=== PATIENT | male | born 1955 | race Caucasian/White ===

== ENCOUNTER 2017-10-08 19:48 | Observation (INO) | payer BC, SELFPAY ==
[2017-10-08 19:49] VITALS: BP 137/99; PULSE 85; RESP 14; TEMP 36.6; O2SAT 99; BMI 23.8
--- NOTE | 2017-10-08 20:07 | EKG12_ITS ---
Test Reason : CP Blood Pressure : / mmHG Vent. Rate : 071 BPM Atrial Rate : 071 BPM P-R Int : 130 ms QRS Dur : 092 ms QT Int : 384 ms P-R-T Axes : 022 008 036 degrees QTc Int : 417 ms Normal sinus rhythm Normal ECG Confirmed by DONY HAMPTON, CHAR ([id number]), editor & co founder JERMAINE WARREN ([id number]) on 10/10/2017 1:07:38 PM Referred By: GONZALEZ DUARTE Confirmed By:CHAR NAPOLES MD
--- NOTE | 2017-10-08 20:20 | RAD_ITS ---
STUDY: X-RAY CHEST REASON FOR EXAM: Male, 62 years old. Chest pain TECHNIQUE: Single frontal view of the chest. COMPARISON: July 16, 2012 FINDINGS: The lungs are clear and expanded. There is no demonstrated pleural abnormality. Normal size heart. Normal mediastinum and long. Normal visualized pulmonary arteries. Normal visualized aortic arch and descending thoracic aorta. Normal visualized thoracic spine. Normal visualized ribs, clavicles, and shoulders. There is no demonstrated abnormality of the visualized soft tissue structures of the upper abdomen. RAD/Chest 1 View (Portable) IMPRESSION: Normal x-ray examination of the chest. Electronically Signed: Baljinder Paige MD at 21:09 EDT , Service support ,
[2017-10-08] MEDS: Aspirin 81 MG TAB.CHEW 324 MG PO (20:21)
[2017-10-08] MEDS: 0.9% Normal Saline 1,000 ML 150 ML IV (20:21)
[2017-10-08 20:28] LABS: Absolute Lymphocyte Count 3.67 X10^3/ul (0.83-4.51); Absolute Neutrophil Count 4.5 X10^3/uL (2.0-7.7); Basophil# 0.04 X10^3/uL; Basophil% 0.4 % (0-1); Eosinophil# 0.22 X10^3/uL; Eosinophils% 2.3 % (0-5); Hematocrit 45.4 % (40-54); Hemoglobin 14.9 g/dl (13.0-16.5); Lymphocyte # 3.67 X10^3/ul (4.0); Lymphocyte % 37.9 % (19-41); Mean Corp Hgb Conc 32.8 g/gl (32-36); Mean Corpuscular Hgb 31.6 pg (27.0-32.0); Mean Corpuscular Volume 96.4 fL (80-94); Mean Platelet Vol. 10.9 fl (6.2-12.0); Monocyte# 1.26 X10^3/uL; Neutrophil # 4.47 X10^3/uL (2.7-7.7); Neutrophil % 46.2 % (47-70); Platelet Count 177 K/mm3 (150-450); RBC Distribution Width CV 13.1 % (11.6-14.6); RBC Distribution Width SD 45.9 fl (35.1-43.9); Red Blood Count 4.71 M/mm3 (4.6-6.2); White Blood Count 9.7 K/mm3 (4.4-11.0)
[2017-10-08 20:31] LABS: POSITIVE COUNT NO; POSITIVE DIFFERENTIAL NO; POSITIVE MORPHOLOGY NO
[2017-10-08 20:37] LABS: D-Dimer Quantitative (DVT/PE) 0.39 FEU/ug/m (0.27-0.49)
[2017-10-08 20:40] LABS: Anion Gap 8 (5-15); BUN 17 mg/dL (7-18); BUN/Creat Ratio 18.9 RATIO (10-20); Calcium,Total 8.4 mg/dL (8.5-10.1); Chloride 107 mmol/L (98-107); EST Glomerular Filtration Rate 91 mL/min (>60); Est Glom Filt Rate - Afr Amer 110 mL/min (>60); Estimated Creatinine Clearance 89.48 ml/min; Glucose 86 mg/dL (74-106); Potassium 3.7 mmol/L (3.5-5.1); Sodium Level 144 mmol/L (136-145)
[2017-10-08 20:49] VITALS: BP 148/93; PULSE 83; RESP 16; O2SAT 98
[2017-10-08 21:06] VITALS: BP 128/99; PULSE 76; RESP 16; O2SAT 98
--- NOTE | 2017-10-08 21:28 | EKG12_ITS ---
Test Reason : CP Blood Pressure : / mmHG Vent. Rate : 064 BPM Atrial Rate : 064 BPM P-R Int : 126 ms QRS Dur : 088 ms QT Int : 406 ms P-R-T Axes : 019 018 032 degrees QTc Int : 418 ms Normal sinus rhythm Normal ECG Confirmed by CHAR NAPOLES MD ([id number]), slot editor JERMAINE WARREN ([id number]) on 10/10/2017 1:07:55 PM Referred By: GONZALEZ Confirmed By:CHAR NAPOLES MD
--- NOTE | 2017-10-08 21:28 | ED.VISSUMM ---
- ER Visit Summary Date of Service: 10/08/17 Chief Complaint: Chest pain History of Present Illness: The patient is a 62 M who was sitting at rest tonight when he developed substernal squeezing pain. Patient states the pain is now into his left scapula. He describes as a sharp tightness. He denies shortness of breath or sweating. He did have recent travel back from [place]. He denies any recent change in activity tolerance. He is not a smoker. Physical Examination: Vital signs are unremarkable. Head neck examination is unremarkable. Heart is regular rate and rhythm. Lungs are clear with good air movement. I cannot reproduce any anterior chest wall pain. Abdomen is soft nontender. Back examination is nontender with no reproducible pain. Extremity examination is unremarkable with no calf tenderness or edema. He has strong equal pulses throughout. Test Results: EKG is sinus at 71 with no sign of acute ischemia. Portable chest x-ray is unremarkable. The BC and chemistry studies normal. Troponin is less than 0.02. D-dimer is normal at 0.39. Emergency Department Course and Treatment: Patient was given aspirin IV fluids. On repeat evaluation complaining of mild pain to his left neck. Second EKG will be obtained at this time. Plan will be to admit patient for cycling of cardiac enzymes and further cardiac evaluation. Treatment Plan: [] Disposition: Admit Impression: Chest pain This note was generated with [employer] dictation software. It may contain incorrect words, spelling, and punctuation that were not noted in review of the chart prior to signing ED Disposition - Plan for ED Patient: Chief Complaint: Chest Pain Referrals: Manpreet Valenzuela MD [Primary Care Provider] -
[2017-10-08 21:51] VITALS: BP 129/98; PULSE 73; RESP 16; O2SAT 98
--- NOTE | 2017-10-08 22:15 | HP.PCM_ITS ---
Problem List (1) Chest pain Status: Acute History of Present Illness Date of Admission: 10/08/17 Chief Complaint: Chest pain The patient is a 62 year old male previously healthy admitted for chest pain. He has left sided chest pain. Pain is sharp and occasionally dull-aching. He had the pain at rest. Nothing appeared to make it better or worse. Pain was mild to moderate. Pain migrated to his shoulder and left upper arm. He later developed tightness of his chest after minutes of onset of chest pain. He did not have these symptoms before. He recently travelled back from [place]. Past Medical History Allergies No Known Allergies Allergy (Verified 10/08/17 19:49) Home Medications: Ambulatory Orders Medication Instructions Recorded Gabapentin [Gralise] 300 mg PO PRN PRN 10/08/17 Surgical History: no surgical history Psychiatric History: No pertinent psych hx Lives: Spouse/ Significant Other Smoking Status: Never smoker Alcohol: None Drugs: None Review of Systems Constitutional: Denies: Chills, Fever, Weight Change HEENT: Denies: Head Aches, Sinus Congestion, Sinus Drainage Cardiovascular: Reports: Chest Pain, Chest Tightness. Denies: Palpitations Respiratory: Denies: Cough, Shortness of breath at rest, Sputum production Gastrointestinal: Denies: Abdominal Pain, Nausea, Vomiting Genitourinary: Denies: Dysuria Musculoskeletal: Denies: Joint Pain, Joint Tenderness Skin: Denies: Rash, Wounds Neurological: Denies: Numbness, Tingling, Focal weakness Psychiatric: Denies: Anxiety, Depression, Homicidal Ideations, Suicidal Ideations Hematologic/ Lymphatic: Denies: Easy Bruising, Easy Bleeding VTE Information - Inpt Only VTE Present on Admission: No VTE Mechan Device Prophylaxis: SCD's VTE Pharm Prophylaxis ordered?: Yes Patient Problems: Active and Suspected Problems Chest pain (Acute) - Physical Exam General: Alert, Oriented x3, Cooperative HEENT: Atraumatic, PERRLA, EOMI, Normocephalic Neck: Supple, No JVD, Negative Carotid Bruits Lungs: Clear to auscultation, Normal air movement Cardiovascular: Regular rate, No murmurs Abdomen: Bowel Sounds Present, Soft, Non Tender Extremities: No edema, Capillary Refill Less than 3 Seconds Skin: No rashes, No breakdown Musculoskeletal: No Tenderness to Palpation of Joints or Extremities Neurological: Cranial nerves II-XII grossly intact Psych/Mental Status: Normal Affect, Appropriate Vital Signs Temp Pulse Resp BP Pulse Ox 97.8 F 73 16 129/98 H 98 10/08/17 19:49 10/08/17 21:51 10/08/17 21:51 10/08/17 21:51 10/08/17 21:51 Assessment/Plan Active and Suspected Problems Chest pain (Acute) 62 year old male previously healthy admitted for chest pain. 1) Chest pain: Heart score 4 EKG and chest xray unremarkable. Will get serial trops. Will get FLP. Will start ASA, betablocker, ACEI, and statin. Stress test and ECHO in AM. 2) HTN: Started betablocker and ACEI. 3) Prophylaxis: SCD / heparin.
[2017-10-08 22:20] VITALS: BP 123/84; PULSE 69; RESP 16; TEMP 36.5; O2SAT 100
[2017-10-08 22:22] VITALS: BMI 23.7
[2017-10-08 22:24] VITALS: BMI 23.7
[2017-10-08 23:26] VITALS: PULSE 76
[2017-10-09 03:02] VITALS: PULSE 66
[2017-10-09] MEDS: 0.9% Normal Saline 1,000 ML 150 ML IV (04:31)
[2017-10-09 04:34] LABS: Absolute Lymphocyte Count 2.85 X10^3/ul (0.83-4.51); Absolute Neutrophil Count 3.5 X10^3/uL (2.0-7.7); Basophil# 0.04 X10^3/uL; Basophil% 0.5 % (0-1); Eosinophil# 0.24 X10^3/uL; Eosinophils% 3.1 % (0-5); Hematocrit 39.4 % (40-54); Hemoglobin 13.2 g/dl (13.0-16.5); Lymphocyte # 2.85 X10^3/ul (4.0); Lymphocyte % 37.1 % (19-41); Mean Corp Hgb Conc 33.5 g/gl (32-36); Mean Corpuscular Volume 95.4 fL (80-94); Monocyte# 1.07 X10^3/uL; Monocyte% 13.9 % (0-10); Neutrophil # 3.47 X10^3/uL (2.7-7.7); Neutrophil % 45.1 % (47-70); Platelet Count 164 K/mm3 (150-450); RBC Distribution Width CV 12.9 % (11.6-14.6); RBC Distribution Width SD 43.7 fl (35.1-43.9); Red Blood Count 4.13 M/mm3 (4.6-6.2); White Blood Count 7.7 K/mm3 (4.4-11.0)
[2017-10-09 04:37] LABS: Prothrombin Time (Protime)PT. 13.4 SECONDS (11.7-14.9)
[2017-10-09 04:38] LABS: Partial Thromboplast Time 28.1 Seconds (24.1-36.2)
[2017-10-09 04:46] LABS: POSITIVE COUNT NO; POSITIVE DIFFERENTIAL NO; POSITIVE MORPHOLOGY NO
[2017-10-09 04:49] LABS: AST(SGOT) 30 U/L (15-37); Alanine Aminotransfer ALT/SGPT 51 U/L (16-61); Albumin, Serum 2.8 g/dL (3.2-5.0); Alkaline Phosphatase 61 U/L (45-117); Anion Gap 8 (5-15); BUN 15 mg/dL (7-18); BUN/Creat Ratio 21.1 RATIO (10-20); Calcium,Total 7.6 mg/dL (8.5-10.1); Chloride 109 mmol/L (98-107); Cholesterol 110 mg/dL (200); Creatinine, Serum 0.71 mg/dL (0.70-1.30); EST Glomerular Filtration Rate 119 mL/min (>60); Est Glom Filt Rate - Afr Amer 144 mL/min (>60); Estimated Creatinine Clearance 113.42 ml/min; Globulin 2.7 g/dL (2.2-4.2); Glucose 105 mg/dL (74-106); High Density Lipoprotein 34 mg/dL; Magnesium 2.1 mg/dL (1.6-2.6); Potassium 3.3 mmol/L (3.5-5.1); Protein, Total 5.5 g/dL (6.4-8.2); Sodium Level 143 mmol/L (136-145); Triglycerides 53 mg/dL; Very Low Density Lipoprotein 11 mg/dL (5-40)
[2017-10-09 04:50] VITALS: BP 113/65; PULSE 65; RESP 16; TEMP 36.7; O2SAT 97
--- NOTE | 2017-10-09 05:55 | EKG12_ITS ---
Test Reason : AM EKG Blood Pressure : / mmHG Vent. Rate : 065 BPM Atrial Rate : 065 BPM P-R Int : 130 ms QRS Dur : 098 ms QT Int : 418 ms P-R-T Axes : 028 045 037 degrees QTc Int : 434 ms Normal sinus rhythm Normal ECG When compared with ECG of 13-MAR-2012 10:42, No significant change was found Confirmed by DONY HAMPTON, CHAR ([id number]), loan expeditor JERMAINE WARREN ([id number]) on 10/12/2017 3:38:02 PM Referred By: USHA Confirmed By:CHAR NAPOLES MD
--- NOTE | 2017-10-09 05:55 | ECHOD_ITS ---
Reason For Study: Chest Pain Procedure This was a 2D Doppler, Color Flow transthoracic echocardiogram. Exam performed portable in patient room. Left Ventricle Normal LV size. Left ventricular systolic function is normal. The estimated ejection fraction is 55 %. Transmitral and pulmonary venous doppler flow suggestive of impaired relaxation of left ventricle. No regional wall motion abnormalities noted. Right Ventricle Normal RV size. Normal systolic function. Atria Normal left atrium. Normal right atrium. Mitral Valve Bileaflet diffuse mitral valve thickening. Mild (1+) eccentric mitral valve insufficiency. Tricuspid Valve Normal tricuspid valve. Mild tricuspid valve insufficiency. Pulmonary artery systolic pressure is 26 mmHg. Aortic Valve Trisinus/trileaflet aortic valve. Trivial eccentric aortic valve insufficiency. Pulmonic Valve Normal pulmonic valve. Great Vessels Normal aortic root. The pulmonary artery is normal size. Normal inferior vena cava. Pericardium/Pleural No pericardial effusion. MMode/2D Measurements & Calculations LVIDd: 5.1 cm IVSd: 0.89 cm Ao root diam: 3.5 cm LVIDs: 3.4 cm LVPWd: 1.00 cm LA dimension: 3.5 cm RVDd: 4.2 cm FS: 32.1 % LAV(MOD-bp): 33.9 ml EDV(MOD-sp4): 119.7 ml SV(MOD-sp4): 84.6 ml LAV(MOD-bp) Indexed: 17.2 ml/m2 ESV(MOD-sp4): 35.1 ml LAV(MOD-sp2): 41.7 ml EF(MOD-sp4): 70.7 % LAV(MOD-sp4): 27.7 ml LA A4 area: 12.7 cm2 RA A4 area: 14.7 cm2 Doppler Measurements & Calculations MV E max raul: 75.2 cm/sec Lat Peak E' Raul: 9.7 cm/sec Med Peak E' Raul: 7.6 cm/sec MV A max raul: 62.0 cm/sec E/E' lat: 7.7 E/E' med: 10.0 MV E/A: 1.2 Ao V2 max: 107.1 cm/sec LV V1 max: 94.7 cm/sec PA V2 max: 61.5 cm/sec Ao max P.6 mmHg LV V1 max P.6 mmHg Ao V2 mean: 87.3 cm/sec Ao mean P.2 mmHg Ao V2 VTI: 28.1 cm PI end-d raul: 65.7 cm/sec TR max raul: 228.9 cm/sec TR max P.0 mmHg Interpretation Summary Normal LV size. Left ventricular systolic function is normal. The estimated ejection fraction is 55 %. Transmitral and pulmonary venous doppler flow suggestive of impaired relaxation of left ventricle Mild (1+) eccentric mitral valve insufficiency. Pulmonary artery systolic pressure is 26 mmHg. Ordering Physician: Pb Pretty Referring Physician: Gerald Valenzuela Performed By: Vivien Downing, NIRANJAN, RVT
[2017-10-09 08:04] VITALS: PULSE 77
[2017-10-09 08:20] VITALS: BP 113/66; PULSE 71; RESP 18; TEMP 36.6; O2SAT 96
--- NOTE | 2017-10-09 11:49 | STRESSREP ---
Stress Test Report Exercise myocardial perfusion stress test. 62-year-old man with a history of chest pain. Stress protocol: Resting EKG demonstrates normal sinus rhythm with a rate of 64 bpm normal intervals and noted resting blood pressure is 128/86 centimeters of mercury. The patient exercised according to the regular Kurt protocol for total duration of 10 minutes and 15 seconds. Patient completed 1 minute and 15 seconds into stage IV of the Kurt protocol. The maximum heart rate attained was 157 bpm which was 100% of maximum predicted heart rate the maximum workload attained was 12.1 metabolic equivalents. At rest there were no ST or T-wave changes noted suggest ischemia peak exercise upsloping ST changes only were noted we did not meet the criteria for ischemia. Occasional premature ventricular ectopic beats were noted and short runs of supraventricular tachyarrhythmia present the above were asymptomatic. Myocardial perfusion protocol. 10.9 mCi of technetium 99m sestamibi was injected at rest. The patient exercised according to the regular Kurt protocol for 10 minutes and 15 seconds. Patient obtained 100% maximum predicted heart rate. At peak exercise 33.4 mCi of technetium 99m sestamibi were injected. Stress images were obtained stress and rest images were reconstructed and compared in the short axis vertical long and horizontal long axis. Gated images were also obtained. Perfusion SPECT analysis: Review of the stress images demonstrate normal uptake of tracer noted in all areas of the myocardium. The resting images similarly demonstrate normal uptake of tracer noted in all areas of the myocardium. No areas of reversibility are noted suggest ischemia. No previous infarct is noted. Gated SPECT analysis: The gated ejection fraction is noted to be 61%. Conclusion: Normal exercise myocardial perfusion stress test at a high workload. No clinical angina noted. Preserved ejection fraction.
[2017-10-09 12:48] VITALS: PULSE 85
[2017-10-09 12:52] VITALS: BP 116/80; PULSE 79; RESP 16; TEMP 36.6; O2SAT 98
--- NOTE | 2017-10-09 12:52 | PCM.DC ---
- Discharge Diagnoses Current Active Problems: Current Active and Chronic Problems Chest pain (Acute) You will use the following diet at home:: No restrictions Your food should be the consistency of: Regular Your liquids should be the consistency of: Regular/Thin Discharge Activity: Return to Normal Activity Weight Bearing Status: Full weight bearing Allergies/Adverse Reactions: Allergies No Known Allergies Allergy (Verified 10/08/17 22:41) Medications to take at Discharge Gabapentin [Gralise] 300 mg PO PRN PRN 10/08/17 Claritin 10/09/17 Primary Care Physician: Manpreet Valenzuela MD [Primary Care Provider] - Please follow up with your Primary Care Physician in: IN 1-2 WEEKS
--- NOTE | 2017-10-10 18:30 | PCM.DC.SUM ---
Discharge Date and Diagnosis Date of Admission: 10/08/17 Date of Discharge: 10/09/17 - Primary Discharge Diagnosis #1 musculoskeletal chest pain #2 hypertension Hospital Course and Treatment Operations: None Procedures: 2-D Echocardiogram, Nuclear stress test Summary of Care Provided: The patient is a 62 year old M was seen in the emergency room at [facility] with chief complaint of left-sided chest pain. Workup in the emergency room included an EKG which was unremarkable, chest x-ray was unremarkable, patient's troponin was less than 0.02, and d-dimer was normal. Patient was placed in observation status on PCU, enzymes were cycled and they remain normal. Patient was monitored on telemetry. Patient underwent a nuclear stress test the following day that was negative for reversible ischemia. Patient had an echocardiogram performed which was also unremarkable. On 10/09/17, patient was seen and examined and felt to be in stable condition for discharge home Discharge Activity: Return to Normal Activity Weight Bearing Status: Full weight bearing Home Medications: Medications to take at Discharge Gabapentin [Gralise] 300 mg PO PRN PRN 10/08/17 Claritin 10/09/17 Primary Care Physician: Manpreet Valenzuela MD [Primary Care Provider] - Please follow up with your Primary Care Physician in: IN 1-2 WEEKS Disposition: Home Minutes spent on discharge:: 25 Patient Condition:: Stable Medical Necessity - Tobacco Use Smoking Status: Never smoker Meaningful Use Info Meaningful Use Diagnoses (Choose all that apply): None applicable Code Visit OBSV E&M: 17564 Observation care discharge
== END 2017-10-09 13:15 | disposition home or self-care (01) ==
LOC: ED 20:20 → PCU 22:08
PROVIDERS: Admitting Provider Internal Medicine; Emergency Provider Emergency Medicine; Family Provider Family Medicine; PCP Family Medicine; Visit Provider Internal Medicine
DX: R07.89 Other chest pain (principal); M25.519 Pain in unspecified shoulder; M79.622 Pain in left upper arm; I10 Essential (primary) hypertension
CPT/HCPCS: 36415; 71045; 78452; 80048; 80053; 80061; 83735; 84443; 84484; 85025; 85379; 85610; 85730; 93005; 93017; 93306; 96360; 96361; 99218; 99285; A9500; J7030; A4216; G0378; J2785

== ENCOUNTER 2018-02-05 09:28 | Day surgery (SDC) | payer BC, SELFPAY ==
[2018-02-05 10:02] VITALS: BP 122/89; PULSE 73; RESP 14; TEMP 36.5; O2SAT 97; BMI 22.5
[2018-02-05 10:50] VITALS: BP 107/81; BP 122/89; PULSE 71; RESP 16; TEMP 37.2; O2SAT 97
--- NOTE | 2018-02-05 10:50 | OP.PCM_ITS ---
Problem List (1) Bleeding per rectum Status: Acute Report of Operation Date of Procedure: 02/05/18 Pre-Operative Diagnosis: K 62.5 rectal bleeding Post-Operative Diagnosis: Same Surgery/Procedure Performed:: Colonoscopy Type of Anesthesia:: MAC Anesthesiologist: Eduardo Hernandez Description of Procedure: Patient was brought into the endoscopy suite. Placed in the left lateral decubitus position. Given graded anesthesia. Colonoscope was inserted into the rectum. The scope was directed through the sigmoid colon, descending colon , transverse colon, ascending colon, to the cecum without difficulty. Operative findings: 1. Cecum: Normal appearance no mass lesions normal ileocecal valve. 2. Ascending colon: Normal appearance no mass lesions. 3. Transverse colon: Normal appearance no mass lesions. 4. Descending colon: Normal appearance no mass lesions. 5. Sigmoid colon: Normal appearance no mass lesions scattered small diverticuli identified. 6. Rectum: Normal appearance no mass lesions minimal internal hemorrhoidal disease identified. Small hemorrhoids identified a right on the dentate line they do appear like they have been actively bleeding. No masses in the anus. Scope was withdrawn digital rectal exam was performed showing a smooth prostate with no nodules. Patient will need another colonoscopy in 10 years. His bleeding is obviously coming from these internal hemorrhoids at the dentate line the tricky thing here is how to best deal with them possibly doing hemorrhoidal banding but it may end up that we had to take him to surgery and do a formal hemorrhoidectomy on him. - Admit VTE Documentation VTE Present on Admission: No VTE Mechan Device Prophylaxis: None VTE Pharm Prophylaxis ordered?: No Reason prophylaxis not ordered:: Treatment Not Indicated
[2018-02-05 10:55] VITALS: BP 122/89; BP 98/78; PULSE 70; RESP 16; O2SAT 97
[2018-02-05 11:00] VITALS: BP 109/82; BP 122/89; PULSE 68; RESP 16; O2SAT 96
[2018-02-05 11:05] VITALS: BP 116/81; BP 122/89; PULSE 63; RESP 16; TEMP 36.9; O2SAT 96
[2018-02-05 11:34] VITALS: BP 122/89
== END 2018-02-05 11:35 | disposition home or self-care (01) ==
LOC: EN 09:30 → AC 09:31
PROVIDERS: Family Provider Family Medicine; PCP Family Medicine; Visit Provider Surgery
PROC: 0DJD8ZZ Inspection of Lower Intestinal Tract, Via Natural or Artificial Opening Endoscopic (ICD-10-PCS; CPT 45378; principal; 2018-02-05 10:25)
DX: K62.5 Hemorrhage of anus and rectum (principal); K64.8 Other hemorrhoids; K57.30 Diverticulosis of large intestine without perforation or abscess without bleeding; M19.90 Unspecified osteoarthritis, unspecified site
CPT/HCPCS: 45378; J7120

== ENCOUNTER 2018-11-12 08:51 | Outpatient (RCR) | payer BC, SELFPAY | END 2018-11-12 11:29 | disposition home or self-care (01) | LOC: PT 08:51 | PROVIDERS: Family Provider Family Medicine; PCP Family Medicine; Visit Provider Family Medicine | DX: M21.40 Flat foot [pes planus] (acquired), unspecified foot (principal) ==

== ENCOUNTER → 2019-09-24 12:37 | Outpatient (CLI) | payer BC, SELFPAY ==
[2019-09-24 15:40] LABS: Absolute Lymphocyte Count 1.97 X10^3/uL (0.83-4.51); Absolute Neutrophil Count 2.9 X10^3/uL (2.0-7.7); Basophil# 0.04 X10^3/uL; Basophil% 0.7 % (0-1); Eosinophil# 0.18 X10^3/uL; Eosinophils% 3.2 % (0-5); Hematocrit 43.4 % (40-54); Hemoglobin 14.6 g/dL (13.0-16.5); Lymphocyte # 1.97 X10^3/ul (4.0); Lymphocyte % 34.6 % (19-41); Mean Corp Hgb Conc 33.6 g/dL (32-36); Mean Corpuscular Hgb 31.4 pg (27.0-32.0); Mean Corpuscular Volume 93.3 fL (80-94); Mean Platelet Vol. 11.8 fl (6.2-12.0); Monocyte# 0.63 X10^3/uL; Monocyte% 11.1 % (0-10); NRBC Flagged by Analyzer 0 % (0-5); Neutrophil # 2.87 X10^3/uL (2.7-7.7); Neutrophil % 50.2 % (47-70); Platelet Count 170 K/mm3 (150-450); RBC Distribution Width CV 12.4 % (11.6-14.6); RBC Distribution Width SD 42.5 fl (35.1-43.9); Red Blood Count 4.65 M/mm3 (4.6-6.2); White Blood Count 5.7 K/mm3 (4.4-11.0)
[2019-09-24 15:56] LABS: ALB/GLOB Ratio 1.2 RATIO (0.9-2.4); AST(SGOT) 32 U/L (15-37); Alanine Aminotransfer ALT/SGPT 62 U/L (16-61); Albumin, Serum 3.8 g/dL (3.2-5.0); Alkaline Phosphatase 70 U/L (45-117); Anion Gap 5 (5-15); BUN 13 mg/dL (7-18); Calcium,Total 8.6 mg/dL (8.5-10.1); Chloride 110 mmol/L (98-107); Creatinine, Serum 0.82 mg/dL (0.70-1.30); EST Glomerular Filtration Rate 101 mL/min (>60); Est Glom Filt Rate - Afr Amer 122 mL/min (>60); Globulin 3.3 g/dL (2.2-4.2); Glucose 98 mg/dL (74-106); Potassium 3.7 mmol/L (3.5-5.1); Protein, Total 7.1 g/dL (6.4-8.2); Sodium Level 142 mmol/L (136-145)
[2019-09-27 11:38] LABS: H. Pylori Antibody (IgG) 0.63 (0.00-0.79)
[2019-09-28 09:36] LABS: Beef <0.10 kU/L (Class 0); Corn <0.10 kU/L (Class 0); Egg, Whole <0.10 kU/L (Class 0); Milk (Cow) <0.10 kU/L (Class 0); Peanut <0.10 kU/L (Class 0); Pork <0.10 kU/L (Class 0); Soybean <0.10 kU/L (Class 0); Wheat <0.10 kU/L (Class 0)
[2019-09-28 15:05] LABS: Chocolate <0.10 kU/L (Class 0)
== END ==
PROVIDERS: PCP Family Medicine; Referring Provider Family Medicine; Visit Provider Family Medicine
DX: K21.9 Gastro-esophageal reflux disease without esophagitis (principal)
CPT/HCPCS: 36415; 80053; 85025; 86003; 86005; 86677

== ENCOUNTER → 2019-10-02 08:06 | Outpatient (CLI) | payer BC, SELFPAY ==
--- NOTE | 2019-10-02 08:09 | RAD_ITS ---
STUDY: X-RAY - ESOPHAGUS (BARIUM SWALLOW) WITH FLUOROSCOPY REASON FOR EXAM: Male, 64 years old. Acid reflux, gagging -- 18 fluoro images, 29 fluoro sec, 10.22mGy TECHNIQUE: 18 view(s) of the esophagus were obtained following swallowing of barium. FLUOROSCOPY TIME (if supplied): (0:29) minutes/seconds COMPARISON: None. FINDINGS: There is no demonstrated esophageal foreign body. There is a 1 cm area of circumferential narrowing in the distal esophagus at the level of the gastroesophageal junction with overhanging edges. The ingested 12 mm tablet of barium is trapped at that site. Correlation with endoscopy and biopsy is recommended. Normal gastroesophageal junction, without a demonstrated hiatal hernia. Normal visualized aortic arch and descending thoracic aorta. Normal visualized pulmonary parenchyma. Normal visualized osseous structures of the thorax. RAD/Esophagus Single Contrast IMPRESSION: 1 cm area of the circumferential narrowing in the distal esophagus at the gastroesophageal junction with overhanging edges and trapping of the 12 mm tablet of barium. A neoplastic process should be ruled out. Endoscopic correlation with biopsy is recommended. Electronically Signed: Derick Horowitz, at 10:13 EDT , Service support ,
== END ==
PROVIDERS: PCP Family Medicine; Referring Provider Family Medicine; Visit Provider Family Medicine
DX: K21.9 Gastro-esophageal reflux disease without esophagitis (principal)
CPT/HCPCS: 74220

== ENCOUNTER → 2020-01-03 10:29 | Outpatient (CLI) | payer BC, SELFPAY | PROVIDERS: PCP Family Medicine; Visit Provider Internal Medicine Gastroenterology | DX: Z11.59 Encounter for screening for other viral diseases (principal) | CPT/HCPCS: 87635; G2023; U0003 ==

== ENCOUNTER → 2020-07-08 09:31 | Outpatient (CLI) | payer BC, SELFPAY ==
[2020-07-08 11:22] LABS: ALB/GLOB Ratio 1.2 RATIO (0.9-2.4); AST(SGOT) 37 U/L (15-37); Alanine Aminotransfer ALT/SGPT 70 U/L (16-61); Albumin, Serum 3.8 g/dL (3.2-5.0); Alkaline Phosphatase 74 U/L (45-117); Anion Gap 6 (5-15); BUN 17 mg/dL (7-18); BUN/Creat Ratio 17.8 RATIO (10-20); Calcium,Total 8.4 mg/dL (8.5-10.1); Chloride 107 mmol/L (98-107); Cholesterol 138 mg/dL (200); Creatinine, Serum 0.96 mg/dL (0.70-1.30); EST Glomerular Filtration Rate 84 mL/min (>60); Est Glom Filt Rate - Afr Amer 101 mL/min (>60); Globulin 3.2 g/dL (2.2-4.2); Glucose 94 mg/dL (74-106); High Density Lipoprotein 42 mg/dL; PSA,Total - Annual Screen 3.73 ng/mL (0.00-4.00); Potassium 3.6 mmol/L (3.5-5.1); Sodium Level 140 mmol/L (136-145); Triglycerides 42 mg/dL; Very Low Density Lipoprotein 8 mg/dL (5-40)
[2020-07-09 10:00] LABS: Hepatitis C Antibody Non-Reactive (Nonreactive)
== END ==
PROVIDERS: PCP Family Medicine; Referring Provider Family Medicine; Visit Provider Family Medicine
DX: K21.9 Gastro-esophageal reflux disease without esophagitis (principal); Z12.5 Encounter for screening for malignant neoplasm of prostate; Z13.220 Encounter for screening for lipoid disorders
CPT/HCPCS: 36415; 80053; 80061; 84153; 86803; G0103

== ENCOUNTER → 2021-07-12 07:44 | Outpatient (CLI) | payer BC, SELFPAY ==
--- NOTE | 2021-07-12 07:48 | RAD_ITS ---
CLINICAL INDICATION: 65-year-old male presenting with intermittent gagging and swallowing problems. EXAM: Biphasic upper gastrointestinal series. TECHNIQUE: Standard double phase upper GI performed with effervescent capsules and barium. A barium pill was also administered. FLUOROSCOPY TIME: 2.55 minutes. FINDINGS: Unremarkable swallowing mechanism is seen, unremarkable transit through the oral cavity and oropharynx. Unremarkable transit of the contrast bolus through the esophagus. The esophagus demonstrates unremarkable contours, unremarkable motility, no evidence of esophageal strictures or webs. No evidence of esophageal diverticula is visualized. Delayed transit visualized through the gastroesophageal junction, a moderate-sized hiatus hernia is visualized with mild irregularity/angulation of the gastroesophageal junction seen. Severe gastroesophageal reflux is visualized to the level of the cervical esophagus. RAD/Esophagus Dual Contrast IMPRESSION: Moderate hiatus hernia, severe gastroesophageal reflux. Electronically Signed: Jame Barbour MD at 10:28 EST Tel , Service support ,
== END ==
PROVIDERS: PCP Family Medicine; Referring Provider Family Medicine; Visit Provider Family Medicine
DX: K21.9 Gastro-esophageal reflux disease without esophagitis (principal)
CPT/HCPCS: 74221